=== PATIENT | male | born 1955 | race Caucasian/White ===

== ENCOUNTER 2022-05-14 16:14 | Outpatient (CLI) | payer SELFPAY | END 2022-05-14 16:15 | disposition home or self-care (01) | LOC: AMB 05-19 04:43 | PROVIDERS: Visit Provider Family Medicine | DX: I63.9 Cerebral infarction, unspecified (principal); R41.82 Altered mental status, unspecified; R51.9 Headache, unspecified | CPT/HCPCS: A0425; A0426; A0427 ==